=== PATIENT | female | born 1990 | race Caucasian/White ===

== ENCOUNTER → 2020-12-07 | Outpatient (CLI) | payer OTHER ==
[~2020-12-07] MED LIST: IBUPROFEN600 MG PO; MACROBID 100 M100 MG PO; NORCO 5-325 TA1 EACH PO; [UNRECOGNIZED DRUG - OTHER] PO
== END ==
LOC: KOH-I 09:37
DX: M79.671 Pain in right foot (principal)
CPT/HCPCS: 73630

== ENCOUNTER → 2021-08-02 | Day surgery (SDC) | payer OTHER ==
[~2021-08-02] MED LIST changes: +COLACE 100MG C100 MG PO; +HYDROCODON-ACE1 EAC6 PO; +LEXAPRO20 MG PO; +WELLBUTRIN SR150 M1 PO
[2021-08-02 06:50] LABS: HEMOGLOBIN 12.1 gm/dl (12.3-15.3); RED BLOOD COUNT 4.71 M/UL (4.00-5.10)
== END | disposition home or self-care (01) ==
LOC: OR 05:59
PROVIDERS: Obstetrics & Gynecology
DX: N83.292 Other ovarian cyst, left side (principal); N73.6 Female pelvic peritoneal adhesions (postinfective); K66.1 Hemoperitoneum; U07.1 COVID-19; G43.909 Migraine, unspecified, not intractable, without status migrainosus; J45.909 Unspecified asthma, uncomplicated; F32.9 Major depressive disorder, single episode, unspecified; F41.9 Anxiety disorder, unspecified; Z88.1 Allergy status to other antibiotic agents; Z79.899 Other long term (current) drug therapy
CPT/HCPCS: 36415; 81001; 84703; 85025; J1100; J1170; J1885; J2001; J2250; J2405; J2704; J2710; J2795; J3010; J7030; J7120; U0002

== ENCOUNTER 2022-01-21 19:07 | Emergency (ER) | payer OTHER ==
[2022-01-21 20:12] LABS: HEMOGLOBIN 12.8 gm/dl (12.3-15.3); RED BLOOD COUNT 4.8 M/UL (4.00-5.10); WHITE BLOOD COUNT 10.9 K/UL (4.5-11.0)
[2022-01-21 20:34] LABS: BUN/CREATININE RATIO 18 (0-10)
[2022-01-21] MEDS ORDERED: TORADOL 10 MG T10 MG PO (22:41)
[2022-01-21] MEDS ORDERED: CEPHALEXIN500 M1 PO (22:41)
[2022-01-21] MEDS ORDERED: ONDANSETRON ODT4 MG SL (22:41)
== END 2022-01-21 23:49 | disposition home or self-care (01) ==
LOC: ER1 19:07
PROVIDERS: Family Medicine
DX: N39.0 Urinary tract infection, site not specified (principal); E87.6 Hypokalemia; N83.201 Unspecified ovarian cyst, right side; Z88.1 Allergy status to other antibiotic agents; Z79.899 Other long term (current) drug therapy
CPT/HCPCS: 80053; 81001; 83605; 83690; 84703; 85025; 96374; 99284; J1885; Q9967

== ENCOUNTER 2022-02-21 05:13 | Day surgery (SDC) | payer OTHER ==
[~2022-02-21] VITALS: Ht 162.6 cm; Wt 83.9 kg
[~2022-02-21 05:13] MED LIST changes: +CEPHALEXIN500 M1 PO; +ONDANSETRON ODT4 MG SL; +TORADOL 10 MG T10 MG PO
[2022-02-21] MEDS ORDERED: COLACE 100MG C100 MG PO (07:51)
[2022-02-21] MEDS ORDERED: ENDOCET 10-3251 EACH PO (07:51)
[2022-02-21] MEDS ORDERED: IBUPROFEN600 MG PO (07:51)
[2022-02-21 18:13] LABS: HEMOGLOBIN 12.2 gm/dl (12.3-15.3)
== END 2022-02-22 11:06 | disposition home or self-care (01) ==
LOC: OR 05:13 → MED SURG 4 14:16 → OR 02-22 11:06
PROVIDERS: Obstetrics & Gynecology
DX: N83.201 Unspecified ovarian cyst, right side (principal); N80.0 Endometriosis of uterus; N72 Inflammatory disease of cervix uteri; R10.2 Pelvic and perineal pain; F32.A Depression, unspecified; Z88.1 Allergy status to other antibiotic agents; Z79.899 Other long term (current) drug therapy
CPT/HCPCS: 36415; 84702; 85014; 85018; J0690; J1100; J1170; J1885; J2001; J2250; J2270; J2405; J2550; J2704; J2710; J2795; J3010; J7120